=== PATIENT | female | born 1990 | race Caucasian/White ===

== ENCOUNTER 2018-03-09 06:08 | Day surgery (SDC) | payer BC ==
[2018-03-09] MEDS ORDERED: MIDAZOLAM 1 MG/ML 2 ML INJ (07:28)
[2018-03-09] MEDS ORDERED: PROPOFOL 20 ML ×3 (07:28→08:19)
[2018-03-09] MEDS ORDERED: LIDOCAINE 2% (SDV) 5 ML INJ (07:28)
== END 2018-03-09 16:31 | disposition home or self-care (01) ==
LOC: GIL 06:08
DX: K64.8 Other hemorrhoids (principal); K29.60 Other gastritis without bleeding; R19.7 Diarrhea, unspecified; R10.10 Upper abdominal pain, unspecified; E78.5 Hyperlipidemia, unspecified
CPT/HCPCS: 43235; 84703; 88305